=== PATIENT | male | born 1950 | race Caucasian/White ===

== ENCOUNTER → 2022-09-06 | Day surgery (SDC) | payer MEDICARE, BC ==
[~2022-09-06] MED LIST: Ketamine 200 MG/20 ML MDV ONE; Phenylephrine 1% 10 MG/ML SDV ONE; Propofol 200 MG/20 ML SDV ONE; fentaNYL 50 MCG/ML SDV ONE
[2022-09-06] MEDS: Lactated Ringers 1,000 ML IV SCH (07:37)
== END ==
LOC: CC.SDS 07:10
PROVIDERS: ATTEND Family Medicine
DX: Z12.11 Encounter for screening for malignant neoplasm of colon (principal); D12.0 Benign neoplasm of cecum; K57.30 Diverticulosis of large intestine without perforation or abscess without bleeding; J45.21 Mild intermittent asthma with (acute) exacerbation; G47.33 Obstructive sleep apnea (adult) (pediatric); Z88.0 Allergy status to penicillin; Z88.7 Allergy status to serum and vaccine; Z98.890 Other specified postprocedural states
CPT/HCPCS: 88305; J2370; J2704; J3010; J7120